=== PATIENT | female | born 2000 | race Caucasian/White ===

== ENCOUNTER 2022-07-15 01:38 | Emergency (ER) | payer OTHER ==
[2022-07-15] VITALS (12 sets, daily range): BP systolic 101–125; BP diastolic 68–90
[2022-07-15 02:32] LABS: URINE BLOOD DIPSTICK LARGE (NEGATIVE); URINE GLUCOSE - DIPSTICK NEGATIVE (NEGATIVE); URINE KETONE TRACE mg/dL (NEGATIVE); URINE PROTEIN - DIPSTICK TRACE mg/dL (NEG-TRACE); URINE SPECIFIC GRAVITY <=1.005; URINE UROBILINOGEN - DIPSTICK 0.2 E.U./dL (0.2)
[2022-07-15 02:38] LABS: URINE BILIRUBIN - DIPSTICK NEGATIVE (NEGATIVE); URINE COLOR PINK; URINE LEUK ESTERASE LARGE (NEGATIVE); URINE NITRITE - DIPSTICK NEGATIVE (Negative); URINE RBC >100 RBC/hpf (0-5)
[2022-07-15 02:39] LABS: URINE EPITHELIAL CELLS MODERATE EPI/hpf (0-FEW); URINE WBC >100 WBC/hpf (0-5)
[2022-07-15 02:40] LABS: URINE BACTERIA MODERATE hpf
[2022-07-15] MEDS ORDERED: CEPHALEXIN500 MG PO (05:04)
[2022-07-15] MEDS ORDERED: PYRIDIUM200 MG PO (05:04)
== END 2022-07-15 05:15 | disposition home or self-care (01) | DRG 690 ==
LOC: ED 01:38
PROVIDERS: Emergency Medicine
DX: N39.0 Urinary tract infection, site not specified (principal); R30.0 Dysuria; M54.50 Low back pain, unspecified

== ENCOUNTER 2023-03-07 08:27 | Emergency (ER) | payer OTHER ==
[~2023-03-07] VITALS: Ht 157.5 cm; Wt 63.5 kg
[2023-03-07] VITALS (10 sets, daily range): BP systolic 88–111; BP diastolic 60–82
[~2023-03-07 08:27] MED LIST: CEPHALEXIN500 MG PO; PYRIDIUM200 MG PO
[2023-03-07 09:09] LABS: BASO% 0.2 % (0-3); HEMATOCRIT 39.8 % (37.0-47.0); IMMATURE GRANULOCYTES 0.3 % (0.0-5.0); LYMPH% 15.8 % (15-41); MEAN CELL VOLUME 88.1 fL CALC (80.0-100.0); MEAN CORPUSCULAR HGB CONC 35.2 g/dL CAL (32.0-36.0); MONO% 4.5 % (2-13); NEUT# 4.76 thou/uL (2.00-7.15); NEUT% 79.2 % (42-76); RED BLOOD COUNT 4.52 mill/uL (4.20-5.60); RED CELL DISTRI WIDTH 11.2 % (11.5-15.5)
[2023-03-07 09:21] LABS: ALBUMIN 4.4 g/dL (3.2-5.0); ALKALINE PHOSPHATASE 87 u/l (38-126); ANION GAP 16 (6-22 (CALC)); BILIRUBIN, TOTAL 0.9 mg/dL (0.02-1.3); BUN 10 mg/dL (7-17); BUN/CREATININE RATIO 10 (12-20 (CALC)); CARBON DIOXIDE 18 mmol/l (22-30); CHLORIDE 103 mmol/l (95-108); GFR FOR AFR.AMER. > 60 ML/MIN (>=60 (CALC)); GFR OTHER RACES > 60 ML/MIN (>=60 (CALC)); POTASSIUM 3.5 mmol/l (3.5-5.1); SGOT/AST 46 u/l (14-36); SODIUM 133 mmol/l (137-146); TOTAL PROTEIN 7.5 g/dL (6.3-8.2)
[2023-03-07 10:57] LABS: URINE BLOOD DIPSTICK Moderate (NEGATIVE); URINE GLUCOSE - DIPSTICK Negative (NEGATIVE); URINE KETONE 80 mg/dL (NEGATIVE); URINE LEUK ESTERASE Negative (NEGATIVE); URINE NITRITE - DIPSTICK Negative (Negative); URINE PH 5.5 (4.5-8.0); URINE PROTEIN - DIPSTICK 30 mg/dL (NEG-TRACE); URINE SPECIFIC GRAVITY 1.015; URINE UROBILINOGEN - DIPSTICK 0.2 E.U./dL (0.2)
[2023-03-07 10:58] LABS: URINE COLOR Yellow
[2023-03-07 11:12] LABS: URINE RBC 0-2 RBC/hpf (0-5); URINE SQUAMOUS EPITHELIAL CELL MANY EPI/hpf (0-FEW); URINE WBC 0-2 WBC/hpf (0-5)
== END 2023-03-07 12:45 | disposition home or self-care (01) | DRG 923 ==
LOC: ED 08:27
PROVIDERS: Family Medicine
DX: T67.1XXA Heat syncope, initial encounter (principal); E86.0 Dehydration